=== PATIENT | female | born 2000 | race Caucasian/White ===

== ENCOUNTER 2020-11-18 22:28 | Emergency (ER) | payer BC, SELFPAY ==
[2020-11-18 22:34] VITALS: BP 140/93; PULSE 120; RESP 20; TEMP 36.3; O2SAT 99
[2020-11-18 22:55] VITALS: BP 161/82; PULSE 112; RESP 18; O2SAT 97
--- NOTE | 2020-11-18 23:14 | ED.GENADULT ---
HPI - General Adult General Chief complaint: Skin/Abscess/Foreign Body Stated complaint: rash Time Seen by Provider: 11/18/20 22:55 Source: patient History of Present Illness HPI narrative: Patient is a 20 y/o female complaining itch and skin bumps at various locations for 1 week. She states that she tried some OTC anti itch cream which did not help. She states her bumps usually appear and disappear and reappear in different places. She has no fever, chill, vomiting or diarrhea. Related Data Allergies Allergy/AdvReac Type Severity Reaction Status Date / Time No Known Allergies Allergy Verified 11/18/20 22:38 Review of Systems Constitutional: Constitutional: Denies chills, Denies fever(s), Denies headache(s) and Denies weakness Eyes: Eyes: Denies blurry vision ENT: Denies headache(s) and Denies neck pain Cardiovascular: Cardiovascular: Denies chest pain and Denies dyspnea Respiratory: Respiratory: Denies cough and Denies dyspnea Gastrointestinal: Gastrointestinal: Denies abdominal pain, Denies diarrhea, Denies nausea and Denies vomiting Genitourinary: Genitourinary: Denies hematuria and Denies dysuria Musculoskeletal: Musculoskeletal: Denies back pain and Denies neck pain Integumentary/Breasts: Skin/Breast: Reports as per HPI, Reports pruritus and Reports erythema Neurologic: Denies headache(s) and Denies weakness PMFSH Past Medical History Medical History No significant past medical history Surgical History Surgical History No significant past surgical history Social History Social History Smoking status: Unknown if ever smoked Gender identity (if verbalized by the patient): Female Exam Const: General: no acute distress and well developed Orientation/consciousness: oriented to person, oriented to place, oriented to time and patient oriented x3 HENMT: Head: normocephalic Ears: external ears normal General nose exam: Normal external nose present Eyes: General: appearance normal, both eyes and all related structures Conjunctivae: conjunctivae normal Neck: Neck: normal visual inspection and full ROM Chest: Chest palpation & inspection: normal inspection of the chest and no tenderness Resp: Effort & Inspection: normal respiratory effort Auscultation: clear to auscultation bilaterally Cardio: Rate: tachycardic Rhythm: regular rhythm GI: GI Palp: No abdominal tenderness and Yes Soft to palpation Skin: General skin exam: normal color and turgor normal Rashes: rashes noted (several raised bumps on right upper back consistent with urticaria) Neuro: General: oriented to person, oriented to place, oriented to time and patient oriented x3 Cognition (Neuro): normal cognition Extrem: General: normal to inspection, full ROM and no pedal edema Psych: Appearance: grossly normal Mental Status: mental status grossly normal Affect: normal affect Course Vital Signs Vital signs: Vital Signs Temperature 36.3 C L 11/18/20 22:34 Pulse Rate 120 H 11/18/20 22:34 Respiratory Rate 20 11/18/20 22:34 Blood Pressure 140/93 H 11/18/20 22:34 Pulse Oximetry 99 11/18/20 22:34 Temperature 36.8 C 11/18/20 23:44 Pulse Rate 94 11/18/20 23:44 Respiratory Rate 16 11/18/20 23:44 Blood Pressure 128/72 11/18/20 23:44 Pulse Oximetry 99 11/18/20 23:44 Medical Decision Making Vital Signs Vital Signs: Vital Signs Temperature 36.3 C L 11/18/20 22:34 Pulse Rate 120 H 11/18/20 22:34 Respiratory Rate 20 11/18/20 22:34 Blood Pressure 140/93 H 11/18/20 22:34 Pulse Oximetry 99 11/18/20 22:34 Temperature 36.8 C 11/18/20 23:44 Pulse Rate 94 11/18/20 23:44 Respiratory Rate 16 11/18/20 23:44 Blood Pressure 128/72 11/18/20 23:44 Pulse Oximetry 99 11/18/20 23:44 Discharge Plan Discharge Clinical
[2020-11-18 23:44] VITALS: BP 128/72; PULSE 94; RESP 16; TEMP 36.8; O2SAT 99
== END 2020-11-18 23:45 | disposition home or self-care (01) ==
PROVIDERS: Emergency Provider Emergency Medicine
DX: L50.9 Urticaria, unspecified (principal); I10 Essential (primary) hypertension
CPT/HCPCS: 99283

== ENCOUNTER 2021-04-20 15:08 | Emergency (ER) | payer BC, SELFPAY ==
--- NOTE | 2021-04-20 15:15 | ED.URI ---
HPI - URI/Sore Throat General Chief Complaint: Upper Respiratory Infection Stated Complaint: sinus infection Time Seen by Provider: 04/20/21 15:15 Source: patient and family Mode of arrival: ambulatory Limitations: no limitations History of Present Illness HPI Narrative: patient presents with nasal pressure and congestion for over a week. patient is taking janet and nyquil/dayquil with minimal releif. no shortness of breath no chest pain no covid exposure no one else in the home is ill. MD elicited complaint: sinus pain Able to tolerate fluids by mouth: Yes Related Data Allergies Allergy/AdvReac Type Severity Reaction Status Date / Time No Known Allergies Allergy Verified 11/18/20 22:38 Review of Systems Review of Systems: Narrative: CONSTITUTIONAL: Denies fever, chills, or sweats. EYES: Denies visual changes, redness, or discharge. ENT: reports rhinorrhea, congestion,denies sore throat, or otalgia. CARDIOVASCULAR: Denies chest pain, palpitations, or edema. RESPIRATORY: Denies cough or dyspnea. GASTROINTESTINAL: Denies abdominal pain, nausea, vomiting, or diarrhea. GENITOURINARY: Denies dysuria or hematuria. SKIN: Denies rash or itching. MUSCULOSKELETAL: Denies back pain, joint pain, or myalgia. NEUROLOGIC: Denies headache, numbness, or weakness. PSYCHIATRIC: Denies anxiety or depression. PMFSH Past Medical History Medical History No significant past medical history Surgical History Surgical History No significant past surgical history Social History Social History Smoking status: Unknown if ever smoked Gender identity (if verbalized by the patient): Female Comments At time of signature, agree with nursing past medical, surgical, social and family history. There is no relevant family history pertinent to the presenting complaint Exam Narrative: Exam Narrative: GENERAL: Well-appearing, well-nourished, and in no acute distress. HEAD: Normocephalic, atraumatic. EYES: PERRLA and EOMI. ENT: Nares clear, no rhinorrhea or epistaxis. Mucous membranes moist.moderate maxillary sinus pressure mild bilateral tm dullness NECK: Supple. CHEST: Clear to auscultation. No respiratory distress. HEART: Regular rate and rhythm. No murmur heard. Normal peripheral pulses. ABDOMEN: Soft, nontender, nondistended, normal active bowel sounds. EXTREMITIES: Normal range of motion. No edema. SKIN: Warm, dry, no rash. NEURO: No focal deficits. Alert and oriented x3. Karena Coma Scale Eye Opening: Spontaneous 4 [place] Coma Scale Motor: Obeys Commands 6 [place] Coma Scale Verbal: Oriented 5 [place] Coma Scale Total 15 Course Vital Signs Vital signs: Vital Signs Temperature 37.4 C 04/20/21 15:17 Pulse Rate 100 04/20/21 15:17 Respiratory Rate 16 04/20/21 15:17 Blood Pressure 141/84 H 04/20/21 15:17 Pulse Oximetry 100 04/20/21 15:17 Temperature 37.4 C 04/20/21 15:17 Pulse Rate 100 04/20/21 15:17 Respiratory Rate 16 04/20/21 15:17 Blood Pressure 141/84 H 04/20/21 15:17 Pulse Oximetry 100 04/20/21 15:17 Please CARI schedule a followup visit with your personal physician for further evaluation and treatment. Including recheck and discussion of your blood pressure. If your symptoms persist, change or worsen significantly before you can contact your personal physician then please, without delay, go to the emergency department for further evaluation MDM - URI/Sore Throat Differential Diagnosis Differential diagnosis: Likely upper respiratory infection, otitis media, sinusitis, viral infection, bronchitis, influenza and pharyngitis Critical Care Time Critical Care Time Critical Care Time: No Discharge Plan Discharge Clinical Impression: Sinusitis Patient Disposition: Home, Self-Care Condition: Stable Instructions: Antibiotic
[2021-04-20 15:17] VITALS: BP 141/84; PULSE 100; RESP 16; TEMP 37.4; O2SAT 100
== END 2021-04-20 15:23 | disposition home or self-care (01) ==
PROVIDERS: Emergency Provider Nurse Practitioner Family
DX: J32.9 Chronic sinusitis, unspecified (principal)
CPT/HCPCS: 99213; G0463

== ENCOUNTER 2022-05-10 13:02 | Emergency (ER) | payer BC, SELFPAY ==
--- NOTE | ~2022-05-10 | XR_ITS ---
EXAMINATION: XR hand RT min 3V DATE: 05/10/2022 13:27 INDICATION: Right hand injury and pain. TECHNIQUE: 3 views of right hand were obtained. COMPARISON: None. FINDINGS: Bone alignment is normal. No fracture. Joint spaces are well maintained. IMPRESSION: 1. No fracture. Reviewed, dictated and finalized at location B. IMPRESSION: 1. No fracture.
--- NOTE | 2022-05-10 13:09 | ED.UPPEXIN ---
HPI - Extremity Injury (Upper) General Chief Complaint: Extremity Injury, Upper Stated Complaint: rt hand injury Time Seen by Provider: 05/10/22 13:09 Source: patient Mode of arrival: ambulatory Limitations: no limitations History of Present Illness HPI narrative: Ms. Giordano is a 21-year-old female patient presenting to the clinic today with complaints of a right hand injury/pain. She reports she hammered punched a wooden floor last night when she was mad. She reports pain to the fifth metacarpal and the third, fourth, and fifth knuckles. She has not taken any Tylenol or Motrin nor has she iced her hand. Related Data Home Medications Medication Instructions Recorded Confirmed levonorgestrel 20 mcg/24 hours (7 See Rx Instructions .Route .COMPLEX 05/10/22 05/10/22 yrs) 52 mg intrauterine device (Mirena) Allergies Allergy/AdvReac Type Severity Reaction Status Date / Time No Known Allergies Allergy Verified 05/10/22 13:19 Review of Systems Review of Systems: Pertinent positives per HPI. Patient denies any fever, chills, rash, headache, visual changes, dizziness, cough, runny nose, sore throat, shortness of breath, chest pain, palpitations, nausea, vomiting, diarrhea, constipation, abdominal pain, or any urinary issues. [facility] Past Medical History Medical History No significant past medical history Surgical History Surgical History No significant past surgical history Social History Social History Smoking status: Unknown if ever smoked Gender identity (if verbalized by the patient): Female Comments At the time of my signature, I reviewed and agree with the nursing past medical, surgical, social, and family history. There is no relevant family history pertinent to the patient complaint. Exam Narrative: General: Well-developed, obese in no apparent distress Head: Normocephalic, atraumatic. Cardio: Regular rate and rhythm, s1 and s2 normal, no murmur appreciated. Resp: Clear to auscultation bilaterally, no rhonchi, rales, wheezing or rubs. Musculoskeletal: No deformity, tender to palpation over the third, fourth, fifth knuckles and over the fifth metacarpal, grossly normal range of motion, muscle strength strong and equal, peripheral pulse strong, no edema, no cyanosis, normal gait and station Course Course Emergency Course: Portions of this record may have been created with voice recognition software. Level of Care: Express Care Visit Vital Signs Vital signs: Vital signs reviewed MDM - Extremity Injury (Upper) MDM Narrative Medical decision making narrative: At the time of visit patient is resting comfortably on the exam table. X-ray was performed and was negative for any fracture or malalignment of the right hand. I suspect that the patient has a sprain/contusion to the right hand due to the mechanism of injury. Supportive measures were discussed with the patient she voiced understanding of discharge instructions and agrees to the treatment plan. Discharge Plan Discharge Clinical Impression: Hand pain, right Patient Disposition: Home, Self-Care Condition: Stable Instructions: Hand Sprain (ED) Additional Instructions: X-rays negative for any fracture or malalignment of the right hand Rest, ice, elevate Hiren wrap as discussed Tylenol/Motrin as needed for pain Follow-up with your PCP in 3 to 5 days if symptoms persist or sooner if they worsen Prescriptions: No Action prednisone 20 mg tablet 40 mg PO DAILY 5 Days Qty: 10 0RF amoxicillin 875 mg tablet 875 mg PO Q12H 7 Days Qty: 14 0RF fluticasone propionate [Flonase Allergy Relief] 50 mcg/actuation spray,suspension 2 spray NASAL BID Qty: 9.9 0RF Rx Instructions: administer into each nostril Follow-up/Refer
[2022-05-10 13:15] VITALS: BP 136/79; PULSE 110; RESP 18; TEMP 37.6; O2SAT 100
== END 2022-05-10 13:35 | disposition home or self-care (01) ==
PROVIDERS: Emergency Provider Nurse Practitioner Family
DX: M79.641 Pain in right hand (principal)
CPT/HCPCS: 73130; 99213; G0463

== ENCOUNTER 2024-11-30 20:55 | Emergency (ER) | payer OTHER, SELFPAY ==
[2024-11-30 20:55] VITALS: RESP 16
[2024-11-30 20:56] VITALS: BP 142/98; PULSE 121; RESP 18; TEMP 36.8; O2SAT 100
--- NOTE | 2024-11-30 20:59 | ED_ITS ---
HPI - URI/Sore Throat General Chief Complaint: Upper Respiratory Infection Stated Complaint: upper respiratory Time Seen by Provider: 11/30/24 20:56 Source: patient Mode of arrival: ambulatory Limitations: no limitations History of Present Illness HPI Narrative: patient is a 24-year-old female with cough and congestion for the past few days. She had exposure to somebody with bronchitis over [place]. No chest pain or shortness of breath. MD elicited complaint: cough, rhinorrhea and nasal congestion Pertinent past history: other ( None) Onset (ago): day(s) (3) Consistency: constant Severity: moderate Pain scale (0-10): 0 Description of mucous: clear, watery, yellow and green Able to tolerate fluids by mouth: Yes Exacerbating factors: nothing Relieving factors: nothing Context: sick contacts Associated symptoms: nasal congestion and cough Treatments prior to arrival: acetaminophen, ibuprofen and cold medicine Related Data Allergies Allergy/AdvReac Type Severity Reaction Status Date / Time No Known Allergies Allergy Verified 11/30/24 21:54 Review of Systems Review of Systems: All systems reviewed & are unremarkable except as noted in HPI and below Constitutional: Constitutional: Reports no additional constitutional complaints Eyes: Eyes: Reports no additional eye complaints ENT: Reports system reviewed and no additional complaints, except as documented Cardiovascular: Cardiovascular: Reports no additional cardiovascular complaints Respiratory: Respiratory: Reports no additional respiratory complaints Gastrointestinal: Gastrointestinal: Reports no additional gastrointestinal complaints Genitourinary: Genitourinary: Reports no additional female genitourinary complaints Musculoskeletal: Musculoskeletal: Reports no additional musculoskeletal complaints Integumentary/Breasts: Skin/Breast: Reports system reviewed and no additional complaints, except as docu Neurologic: Reports system reviewed and no additional complaints, except as documented Psychiatric: Psychiatric: Reports no additional psychiatric complaints Endocrine: Endocrine: Reports no additional endocrine complaints Hematologic/Lymphatic: Hematologic/Lymphatic: Reports no additional hematologic/lymphatic complaints Allergic/Immunologic: Allergic/Immunologic: Reports no additional allergic/immunologic complaints PMFSH Past Medical History Medical History No significant past medical history Surgical History Surgical History No significant past surgical history Social History Social History Smoking status: Unknown if ever smoked Gender identity (if verbalized by the patient): Female Exam Const: General: ill appearing Nutritional Appearance: well nourished [place] entation/consciousness: patient oriented x3 Limitations: no limitations HENMT: Head: normal to inspection Ears: external ears normal Face/Nose/Sinus: Normal external nose present Eyes: Conjunctivae: conjunctivae normal Pupils: Equal, round and reactive pupils present EOM: EOMs intact bilaterally Neck: Neck: normal visual inspection Chest: Chest palpation & inspection: normal inspection of the chest Resp: Effort & Inspection: normal respiratory effort and not labored Auscultation: clear to auscultation bilaterally, no crackles, no rales, rhonchi ( diffuse), no wheezes, breath sounds present and lung sounds not diminished Cardio: Rate: regular rate Rhythm: regular rhythm Heart sounds: no murmurs GI: Inspection: non-distended GI Palp: Yes Soft to palpation and No Tenderness to palpation present (GI) Auscultation: normal bowel sounds : General: Yes bladder normal to palpation Back/Spine/Pelvis: Back: no CVA tenderness Skin: General skin exam: normal color Rashes: no rashes Wounds: no wounds Neuro: General: patient oriented x3 Cranial nerves: Yes Nystagmus not present Speech: normal speech Gait exam (Neuro): Normal gait present Extrem: General: normal to inspection Psych: Mental Status: mental status grossly normal Affect: normal affect Attitude: cooperative Course Vital Signs Vital signs: Vital Signs Respiratory Rate 16 11/30/24 20:55 Oxygen Delivery Room Air 11/30/24 20:55 Temperature 36.8 C 11/30/24 20:56 Pulse Rate 121 H 11/30/24 20:56 Respiratory Rate 18 11/30/24 20:56 Blood Pressure 142/98 H 11/30/24 20:56 Pulse Oximetry 100 11/30/24 20:56 Oxygen Delivery Room Air 11/30/24 20:56 MDM - URI/Sore Throat MDM Narrative Medical decision making narrative: patient is a 24-year-old female with a cough and congestion for the past 3 days. We will do a COVID panel test at this time. Also check urinalysis and test. Lab Data Attestation: I reviewed the patient's lab results. Labs: Lab Results 11/30/24 11/30/24 11/30/24 Range/Units 20:57 21:23 21:24 Urine Color Light yellow (Yellow) Urine Appearance Sl cloudy A (Clear) Urine pH 6.0 (5.0-8.0) Ur Specific [place] >= 1.030 H (1.010-1.020) Urine Protein Negative (Negative) Urine Glucose (UA) 1+ H (Negative) Urine Ketones Trace H (Negative) Ur Blood (Man) Negative (Negative) Urine Nitrate Negative (Negative) Urine Bilirubin Negative (Negative) Urine Urobilinogen 1.0 (0.2-1.0) mg/dL Leukocyte Esterase Rfl Trace H (Negative) ONEAL/UL Urine RBC 0-2 (0-2) /hpf Urine WBC 4-6 H (0-3) /hpf Ur Squamous Epith Cells Moderate H (Few) /hpf Urine Bacteria 1+ H (None) /hpf Urine Test Negative Influenza A (RT-PCR) Negative (Negative) Influenza B (RT-PCR) Negative (Negative) RSV (RT-PCR) Negative (Negative) SARS-CoV-2 RNA (RT-PCR) Negative (Negative) Group A Strep (PCR) Not detected (Negative) COVID panel negative strep negative UA positive for UTI test negative Discharge Plan Discharge Clinical Impression: Bronchitis Patient Disposition: Home, Self-Care Condition: Stable Instructions: Antibiotic Form, Acute Bronchitis (ED) Patient Language: Luxembourgish Prescriptions: New Coditussin AC 10-200 mg/5 mL liquid 5 ml PO Q8H PRN (Reason: cold symptoms) Qty: 150 0RF Rx Instructions: 5-100 per dose albuterol sulfate 90 mcg/actuation HFA aerosol inhaler 2 inh inhalation Q6H PRN (Reason: shortness of breath or wheezing) Qty: 6.7 0RF levofloxacin 500 mg tablet 500 mg PO DAILY 10 Days Qty: 10 0RF prednisone 20 mg tablet 40 mg PO DAILY 3 Days Qty: 6 0RF albuterol sulfate 90 mcg/actuation HFA aerosol inhaler 2 inh inhalation QID PRN (Reason: shortness of breath or wheezing) Qty: 6.7 0RF levofloxacin 750 mg tablet 750 mg PO DAILY Qty: 7 0RF codeine-guaifenesin 10-200 mg/5 mL liquid 5 ml PO Q8H PRN (Reason: cold symptoms) Qty: 150 0RF Rx Instructions: 5-10mL per dose prednisone 20 mg tablet 40 mg PO DAILY 3 Days Qty: 6 0RF Follow-up/Referrals: UNKNOWN,DOCTOR [Primary Care Provider] - Time of Disposition: 22:21
--- NOTE | 2024-11-30 21:15 | PC.NURSE ---
ERP aware of blood pressure. No new orders.
[2024-11-30 21:26] LABS: Add Urine Microscopic? YES; Appearance Urine Sl Cloudy (Clear); Bilirubin Urine Negative (Negative); Blood Urine Negative (Negative); Color Urine Light Yellow (Yellow); Glucose Urine UA 1+ (Negative); Ketones Urine Trace (Negative); Leukocyte Esterase Ur Trace LEU/UL (Negative); Nitrate Urine Negative (Negative); Protein Urine Negative (Negative); Specific Grav Ur >= 1.030 (1.010-1.020)
[2024-11-30 21:29] LABS: Bacteria Urine 1+ /hpf; RBC Urine 0-2 /hpf (0-2); Squamous Epithelial Cell Urine Moderate /hpf (Few)
[2024-11-30 21:29] LABS: Pregnancy On Board Control Positive; Urine Pregnancy Test Negative
[2024-11-30 21:34] LABS: Strep Group A RT-PCR NOT DETECTED (Negative)
[2024-11-30 21:43] LABS: SARS-CoV-2 RNA PCR Negative (Negative)
[2024-11-30 21:44] LABS: Influenza A QL RT-PCR Negative (Negative); Influenza B QL RT-PCR Negative (Negative); RSV RNA, RT-PCR Negative (Negative)
[2024-11-30 22:35] VITALS: BP 109/83; PULSE 98; RESP 16; TEMP 37; O2SAT 99
--- NOTE | 2024-12-01 09:31 | PC.NURSE ---
[facility] CALLED. THEY ONLY HAVE CODEINE-GUAIFENISON VS . OK TO CHANGE DOSAGE PER DR VERA
== END 2024-11-30 22:35 | disposition home or self-care (01) ==
PROVIDERS: Emergency Provider Emergency Medicine
DX: J40 Bronchitis, not specified as acute or chronic (principal); Z20.822 Contact with and (suspected) exposure to COVID-19
CPT/HCPCS: 81001; 81025; 87637; 87651; 99283